=== PATIENT | female | born 1985 | race Caucasian/White ===

== ENCOUNTER 2016-12-16 13:34 | Emergency (ER) | payer OTHER ==
[2016-12-16] MEDS ORDERED: DEXAMETHASONE 4 MG TABLET ONE (14:26)
[2016-12-16] MEDS ORDERED: ACETAMINOPHEN 325 MG TABLET ONE (14:26)
[2016-12-16] MEDS ORDERED: IBUPROFEN 600 MG TABLET ONE (14:26)
== END 2016-12-16 15:36 | disposition home or self-care (01) ==
LOC: ED 13:34
DX: J06.0 Acute laryngopharyngitis (principal); F17.210 Nicotine dependence, cigarettes, uncomplicated
CPT/HCPCS: 87880; 99283 ×2; A9270 ×3

== ENCOUNTER 2016-12-27 04:17 | Emergency (ER) | payer OTHER ==
[2016-12-27] MEDS ORDERED: IOPAMIDOL 300 (61%) 100 ML VIAL IV ONE (04:18)
[2016-12-27] MEDS ORDERED: LACTATED RINGERS 1,000 ML ONE (05:13)
[2016-12-27] MEDS ORDERED: KETOROLAC TROMETHAMINE 15 MG/ML VIAL ONE (05:13)
[2016-12-27 05:22] LABS: ABSOLUTE NEUTROPHIL COUNT 6.3 K/mm3 (1.8-7.7); BASO % 0.4 % (0.2-1.0); EOS # 0.2 (0.0-0.5); EOS % 1.7 % (0.9-2.9); HEMATOCRIT 44.7 % (37.0-47.0); HEMOGLOBIN 14.8 gm/l (12.0-16.0); IMM NEUT% 0.2 % (0-1); LYMPH # 1.7 (1.0-4.8); LYMPH % 18.6 % (15-45); MEAN CELL VOLUME 88.7 fl (81.0-99.0); MEAN CORPUSCULAR HEMOGLOBIN 29.4 pg (27.0-31.0); MEAN CORPUSCULAR HGB CONC 33.1 g/dl (33.0-37.0); MEAN PLATELET VOLUME 10.1 fl (7.4-10.4); MONO # 0.9 (0.0-0.8); MONO % 9.9 % (4-12); NEUT % 69.2 % (43-75); PLATELET COUNT 204 K/mm3 (130-400); RED CELL DISTRIBUTION WIDTH 13.3 % (11.5-14.5)
[2016-12-27 05:39] LABS: CALCIUM 9.4 mg/dL (8.6-10.3)
--- NOTE | 2016-12-27 10:05 | CT ---
Exam: CT soft tissue neck with contrast COMPARISON: None INDICATION: Throat pain for 2 weeks, mostly on the left but lump on right side. TECHNIQUE: CT examination of the soft tissues of the neck was obtained following the administration of 100 of Isovue-300 venous contrast. FINDINGS: There is cervical lymphadenopathy, overall left greater than right, with the dominant lymph node at level II on the left measuring up to 1.7 cm in short axis diameter. There is no evidence of suppurative lymphadenopathy. Mildly prominent lingual and palatine tonsils are noted asymmetrically enlarged. There is no parapharyngeal edema or abscess. There are mildly prominent bilateral axillary and mediastinal lymph nodes which are more significant for number rather than size. Lung apices are clear. Visualized extracranial structures are unremarkable. The visualized paranasal sinuses and mastoid air cells are well-aerated. Orbits within normal limits. There is multilevel degenerative disc disease most prominent at C6-7. No worrisome lytic or blastic osseous lesion is identified. IMPRESSION: Bilateral cervical lymphadenopathy, left greater than right, with the dominant lymph node at level II on the left measuring up to 1.7 cm in short axis diameter. Visualized mediastinal and axillary lymph nodes are more significant for number rather than size. These are of uncertain etiology and significance. These could simply be reactive, although lymphoproliferative disorder cannot be excluded. Preliminary report transmitted to the emergency department from [facility] at 0705 hours 12/27/2016.
== END 2016-12-27 07:24 | disposition home or self-care (01) ==
LOC: ED 04:17
DX: J02.9 Acute pharyngitis, unspecified (principal); R59.1 Generalized enlarged lymph nodes; I47.1 Supraventricular tachycardia; F17.210 Nicotine dependence, cigarettes, uncomplicated
CPT/HCPCS: 84703; 85025; 80048; 70491; 99283 ×2; 96374; J1885; J7120; Q9967